=== PATIENT | female | born 1945 | race Caucasian/White ===

== ENCOUNTER 2025-08-21 12:51 | Emergency (ER) | payer MEDICARE, OTHER, SELFPAY ==
[2025-08-21 13:05] VITALS: BP 196/95; PULSE 71; RESP 17; TEMP 36.3; O2SAT 99; BMI 39.3
[2025-08-21 14:30] LABS: Appearance Urine UA CLEAR; Bilirubin Urine UA NEGATIVE (NEGATIVE); Color Urine UA YELLOW; Glucose Urine UA NEGATIVE (Negative); Ketones Urine UA NEGATIVE (NEGATIVE); Leukocyte Esterase Urine UA NEGATIVE (NEGATIVE); Nitrite Urine UA NEGATIVE (Negative); Occult Blood Urine UA NEGATIVE (Negative); Protein Urine UA NEGATIVE (Negative); Specific Gravity Urine UA <=1.005 (1.000-1.035); Urobilinogen Urine UA 0.2 E.U./dL (0.2); pH Urine UA 5.0 (4.5-8.0)
[2025-08-21 14:35] LABS: Culture Indicated Urine Cult Not Indicated
--- NOTE | 2025-08-21 14:59 | ED.FEMALEGU ---
HPI - Female Genitourinary General Chief complaint: Urogenital-Female Stated complaint: UTI , Meds from UTI isn't working Time Seen by Provider: 08/21/25 13:02 Source: patient Mode of arrival: Family Vehicle History of Present Illness HPI Narrative: 79-year-old female with history of hypertension, hyperlipidemia, diabetes, occasional UTIs, presenting with 4 days of urinary symptoms, had a UA done on 08/17 was prescribed Macrobid. Has still been symptomatic. Urine cultures today show greater sensitivity to cephalosporins. denies fevers, chills, nausea, vomiting, diarrhea, abdominal pain, chest pain, shortness of breath, dizziness, headache, and urinary symptoms. Related Data Previous Rx's ?Medication ?Instructions ?Recorded Saccharomyces boulardii 250 mg 250 mg PO BID #20 caps 08/21/25 capsule (Florastor) cefpodoxime 200 mg tablet 200 mg PO BID #20 tabs 08/21/25 Allergies Allergy/AdvReac Type Severity Reaction Status Date / Time Penicillins Allergy Unknown Verified 08/21/25 13:05 codeine AdvReac Verified 08/21/25 13:05 Review of Systems Review of Systems ROS Unobtainable: All systems reviewed & are unremarkable except as noted in HPI and below Exam Initial Vital Signs Initial Vital Signs: Vital Signs Temperature 97.4 F L 08/21/25 13:05 Pulse Rate 71 08/21/25 13:05 Respiratory Rate 17 08/21/25 13:05 Blood Pressure 196/95 H 08/21/25 13:05 Pulse Oximetry 99 08/21/25 13:05 Oxygen Delivery Method Room Air 08/21/25 13:05 Const General: cooperative, healthy appearing, comfortable, well developed and well hydrated Nutritional Appearance: average body habitus [facility] Head: normal to inspection Ears: external ears normal Nose: external nose normal and nares normal Face and sinus: sinuses nontender, face symmetric, ecchymosis not on the right, not on the left and not bilaterally, erythema not on the right, not on the left and not bilaterally and edema not on the right, not on the left and not bilaterally Mouth: lip normal Eyes General: Yes appearance normal, both eyes and all related structures Eyelids: eyelids normal Sclera: sclerae normal Pupils: PERRL Neck Neck: normal visual inspection Resp Effort & Inspection: normal respiratory effort and able to speak in complete sentences Cardio Rate: regular rate Rhythm: regular rhythm Pulses: radial pulses present GI Inspection: normal to inspection and non-distended General: bimanual renal exam normal bilaterally Back/Spine/Pelvis Back: normal to inspection Skin General: no rashes or lesions noted Neuro General: patient alert, patient awake, patient oriented x3, gait normal, moves all extremities, normal light touch, pain and propioception, no focal motor deficits and CN's II-XI intact bilaterally Cognition: normal cognition Speech: speech normal Gait: normal gait Motor: muscle tone normal throughout Sensory Exam: no sensory deficits noted Extrem General: normal to inspection Psych Appearance: grossly normal Mental Status: mental status grossly normal Speech and Movement: speech and movement normal Mood: congruent mood Attitude: cooperative Thought Process: normal Thought Content: normal Judgment: judgment good Course Orders Ordered: ED Orders 08/21/25 14:00 Urinalysis and Microscopic Stat Vital Signs Vital signs: Vital Signs - 8 hr 08/21/25 13:05 Temperature 97.4 F L Pulse Rate 71 Respiratory Rate 17 Blood Pressure 196/95 H Pulse Oximetry 99 Oxygen Delivery Method Room Air MDM - Female Genitourinary Medical Records Medical records narrative: Patient presents with urinary symptoms, no flank pain, no fever, no derangement and vital signs, stable appearing. Urine culture shows intermediate sensitivity to Macrobid. Will prescribe patient cephalosporins that patient shows good sensitivity to. Considered a pyelo, kidney injury, patient well-appearing with no physical exam findings or history to suggest that. Patient stable for discharge. Lab Data Labs: Lab Results 08/21/25 Range/Units 14:00 Urine Color Yellow Urine Appearance Clear Urine pH 5.0 (4.5-8.0) Ur Specific [place] <=1.005 (1.000-1.035) Urine Protein Negative (Negative) Urine Glucose (UA) Negative (Negative) g/dL Urine Ketones Negative (NEGATIVE) Urine Occult Blood Negative (Negative) Urine Nitrate Negative (Negative) Urine Bilirubin Negative (NEGATIVE) Urine Urobilinogen 0.2 (0.2) E.U./dL Ur Leukocyte Esterase Negative (NEGATIVE) Urine RBC None seen (0-5/HPF) Urine WBC None seen (0-5/HPF) Ur Squamous Epith Cells 1-5 /hpf (0-5/HPF) Urine Bacteria None seen (None) Ur Culture Indicated? Cult not indicated Vol Urine Centrifuged 10ml (spun) Discharge Plan Departure Patient Disposition: Home Clinical Impression: Acute abdominal pain, Urinary tract infection Instructions: DI for Urinary Tract Infection (UTI), DI for Abdominal Pain-Adult Prescriptions: New cefpodoxime 200 mg tablet 200 mg PO BID Qty: 20 0RF Rx Instructions: must administer with a meal/food Saccharomyces boulardii [Florastor] 250 mg capsule 250 mg PO BID Qty: 20 0RF Rx Instructions: As needed to prevent loose stool Referrals: Timo Gimenez MD [Primary Care Provider, Family Practice] Stand Alone Forms: Patient Portal/API
[2025-08-21 15:53] VITALS: BP 184/93; PULSE 67; RESP 17; O2SAT 99
== END 2025-08-21 15:59 | disposition home or self-care (01) ==
PROVIDERS: Emergency Provider Emergency Medicine; Family Provider Internal Medicine; PCP Family Medicine
DX: R10.9 Unspecified abdominal pain (principal); N39.0 Urinary tract infection, site not specified
CPT/HCPCS: 81001; 99282